=== PATIENT | male | born 1980 | race Caucasian/White ===

== ENCOUNTER 2016-08-02 13:35 | Emergency (ER) | payer BC ==
[2016-08-02 13:46] VITALS: BP 102/54; PULSE 81; RESP 16; TEMP 97.7; O2SAT 97
--- NOTE | 2016-08-02 13:56 | UCPHY ---
H & P Patient Type: Established Chief Complaint Nursing Narrative: C/o sore throat at night, nasal drainage, sinus congestion, chest congestion, nonproductive cough BE x 2 days. Unsure of fever. HPI/ROS: CHIEF COMPLAINT: Sinus congestion HISTORY OF PRESENT ILLNESS: This patient is a 36 year old man presenting with acute sinus congestion and head pressure, onset two days ago. It is associated with cough, sore throat, myalgias, subjective fever, and chills. Symptoms are mild-moderate in severity. He has used 600mg ibuprofen, three separate times, with mild short-term alleviation of symptoms. He denies chest pain or dyspnea. He is otherwise healthy. He did not receive an influenza vaccine this year. REVIEW OF SYSTEMS: A ten point review of systems was performed and is negative with the exception of the items mentioned in the HPI. Source: Patient Exam Limitations: No limitations - Personal History Current Tetanus Diphtheria and Acellular Pertussis (TDAP): Yes Tetanus Vaccine Date: within 10 years - Medical/Surgical History Hx Asthma: No Hx Chronic Respiratory Disease: No Hx Diabetes: No Hx Cardiac Disease: No Hx Renal Disease: No Hx Cirrhosis: No Hx Alcoholism: No Hx HIV/AIDS: No Hx Splenectomy or Spleen Trauma: No Other PMH: vasovagal reactions - Family History Significant Family History: No pertinent family hx - Social History Smoking Status: Never smoked Alcohol Use: None Drug Use: None Additional Social History: Works in [employer] - Physical Exam Exam: General Appearance: Alert. Vital signs reviewed. Eyes: Pupils equal and round, no conjunctival injection, no discharge. Anicteric. ENT, Mouth: Mucous membranes are moist, moderate oropharyngeal erythema, without exudate or edema. Neck: Anterior cervical lymphadenopathy present, supple. Respiratory: Lungs are clear to auscultation; no wheezes, rales, or rhonchi. Cardiovascular: Regular rate and rhythm; no murmur, rub, or gallop. Gastrointestinal: Abdomen is soft and nontender, no masses or organomegaly, bowel sounds normal. Skin: Warm and dry, no rashes on exposed skin, normal color. Back: Nontender to palpation over the thoracolumbar spine. No CVAT. Extremities: No lower extremity edema, no calf tenderness or swelling. Neurological: Alert and oriented. Moving all four extremities easily and equally. Psychiatric: Normal affect. Constitutional: Initial Vital Signs Temperature (C) 36.5 C 08/02/16 13:42 Heart Rate 81 08/02/16 13:42 Respiratory Rate 16 08/02/16 13:42 Blood Pressure 102/54 L 08/02/16 13:42 O2 Sat (%) 97 08/02/16 13:42 O2 Delivery Mode Room Air Allergies/Adverse Reactions: No Known Allergies Allergy (Verified 08/02/16 13:45) Home Medications: Medication Instructions Recorded Hydrocodone/APAP 5/325 [[place] 1 - 2 tab PO Q4 PRN #15 tab 08/02/16 5/325 (RX)] Steroid 08/02/16 Medical Decision Making ED Course/Re-evaluation: The patient presents with two days of sinus congestion, cough, subjective fever , and myalgias. Influenza test was ordered and is negative. The patient is afebrile. He is not hypoxic or tachycardic. Lungs are clear to auscultation on exam. He has some lymphadenopathy and pharyngeal erythema on exam. There is no exudate or evidence of peritonsillar abscess. I discussed that this is likely a viral syndrome. Suspected duration of illness is likely 5-7 days. I encouraged him to drink plenty of fluids. I also recommended ibuprofen/Tylenol for subjective fever and myalgias. I also offered narcotic cough medication/[place] for cough suppressant. Customary return precautions given. Differential Diagnosis: DDX includes but is not limited to influeza, URI, bronchitis, sinusitis, tonsillitis/pharyngitis. Departure - Departure Disposition: Home, Routine, Self-Care Clinical Impression: Viral syndrome Condition: Good Instructions: Viral Syndrome (ED) Additional Instructions: Use ibuprofen and Tylenol as needed for fever and body aches. Drink plenty of fluids. Take the [place] as needed for severe pain and cough suppressant. Do not drive or operate heavy machinery while taking the [place]. Return to the emergency department immediately for high fever, severe headache or neck pain, difficulty breathing, abdominal pain, rash or other worsening of condition. Adult Pain & Fever Control: We recommend Acetaminophen (Tylenol) and Ibuprofen (Motrin,Advil) for pain and fever control. When fever is high or pain severe, both drugs can be used at the same time, but at different intervals. Please note the time differences. Your dose is: Acetaminophen 650mg every 4 to 6 hours Ibuprofen 600mg every 6-8 hours with food Note: do not take Acetaminophen with Hydrocodone (Vicodin, Lortab) or Oycodone (Percocet). These medications also contain Acetaminophen. No more than 3000mg of Acetaminophen should be taken in 24 hours (for an adult). Referrals: NICHOLE GRAVES [Primary Care Provider] - As per Instructions Prescriptions: Hydrocodone/APAP 5/325 [[place] 5/325 (RX)] 1 - 2 tab PO Q4 PRN #15 tab PRN Reason: pain - PQRS PQRS Measurement: Does not apply Report Scribed for: Yolande Laureano Report Scribed by: Lisa Nath Date of Report: 08/02/16 Time of Report: 14:14 Physician Review and Approval Statement: 08/02/16 13:55 Portions of this note were transcribed by the registered medical transcriptionist. I, Dr. Yolande Laureano, personally performed the history, physical exam, and medical decision- making; and confirmed the accuracy of the information in the transcribed note.
== END 2016-08-02 14:43 | disposition home or self-care (01) ==
LOC: CED 13:35
DX: B34.9 Viral infection, unspecified (principal)
CPT/HCPCS: 87400-PO; G0463-PO